=== PATIENT | male | born 1945 | race Caucasian/White ===

== ENCOUNTER 2020-05-30 06:14 | Emergency (ER) | payer MEDICARE ==
[~2020-05-30 06:14] MED LIST: ASPIRIN CHEWABL81 MG PO; COUMADIN3 MG PO; COUMADIN5 MG PO; COZAAR100 MG PO; DULERA 200 MCG8.8 GM INH; FLUOXETINE HCL20 M1 PO; FUROSEMIDE20 MG PO; GLUCOTROL10 MG PO; HCTZ25 MG PO; JANTOVEN3 MG PO; JARDIANCE10 MG PO; METFORMIN HCL500 MG PO; MICON-GUARD 2% TOP; MUCINEX 600MG600 MG PO; NORVASC5 MG PO; NOVOLOG MI100 UNIT/3 SC; PROVENTIL HFA6.7 GM INH; SPIRIVA 185 PUFFS/IN INH; TAMSULOSIN HCL0.4 MG PO; VOLTAREN **OUT50 MG PO; ZITHROMAX500 MG PO; ZOCOR20 MG PO
[2020-05-30 07:00] LABS: BASOPHIL 0.5 % (0-2); EOSINOPHIL 2.8 % (0-7); HGB 13.1 g/dl (13.2-18.0); LYMPHOCYTE 12.3 % (15-48); MCH 29.8 pg (25.0-31.0); MCV 93.4 fL (78.0-100.0); MONOCYTE 7.5 % (0-12); MPV 10.4 fL (6.0-9.5); NEUTROPHIL 76.4 % (41-80); NRBC 0; PLT 204 K/uL (150-400); RBC 4.39 M/uL (4.70-6.00); RDW 13.1 % (11.5-14.0); WBC 6.5 K/uL (4.0-10.5)
[2020-05-30 07:13] LABS: PROTHROMBIN TIME 12.5 SECONDS (11.4-13.6)
[2020-05-30 07:23] LABS: ALBUMIN 3.5 g/dL (3.4-5.0); BILIRUBIN - TOTAL 0.5 mg/dL (0.2-1.0); BUN/CREAT RATIO (CALC) 17.9 RATIO; CREATININE 1.51 mg/dL (0.67-1.17); GLOBULIN (CALCULATION) 3.7 g/dL; POTASSIUM 4.1 mmol/L (3.5-5.1); TOTAL PROTEIN 7.2 g/dL (6.4-8.2)
[2020-05-30 07:31] LABS: PRO-BNP 987 pg/mL (<125)
[2020-05-30 10:05] LABS: BILIRUBIN NEGATIVE (NEGATIVE); BLOOD NEGATIVE Ery/uL (NEGATIVE); CLARITY CLEAR (CLEAR); COLOR YELLOW (YELLOW); GLUCOSE (U) NORMAL (NORMAL); LEUKOCYTES NEGATIVE Leu/uL (NEGATIVE); NITRITE NEGATIVE (NEGATIVE); PROTEIN NEGATIVE (NEGATIVE); SPECIFIC GRAVITY 1.015 (1.001-1.030); UROBILINOGEN 0.2 mg/dL (0.2-1.0)
== END 2020-05-30 11:48 | disposition home or self-care (01) ==
LOC: FER 06:14
PROVIDERS: Emergency Medicine
DX: S09.90XA Unspecified injury of head, initial encounter (principal); E11.9 Type 2 diabetes mellitus without complications; I48.91 Unspecified atrial fibrillation; I11.0 Hypertensive heart disease with heart failure; I50.9 Heart failure, unspecified; J44.9 Chronic obstructive pulmonary disease, unspecified; F03.90 Unspecified dementia, unspecified severity, without behavioral disturbance, psychotic disturbance, mood disturbance, and anxiety; Z87.39 Personal history of other diseases of the musculoskeletal system and connective tissue; Z85.46 Personal history of malignant neoplasm of prostate; Z87.891 Personal history of nicotine dependence; Z88.5 Allergy status to narcotic agent; Z86.73 Personal history of transient ischemic attack (TIA), and cerebral infarction without residual deficits; W19.XXXA Unspecified fall, initial encounter; Y92.009 Unspecified place in unspecified non-institutional (private) residence as the place of occurrence of the external cause
CPT/HCPCS: 36415; 70450; 71045; 80053; 81003; 83880; 84484; 85025; 85610; 93005; J7030

== ENCOUNTER 2020-07-21 09:50 | Emergency (ER) | payer MEDICARE ==
[2020-07-21 10:13] LABS: BASOPHIL 0.5 % (0-2); EOSINOPHIL 2.9 % (0-7); HCT 39.2 % (42.0-52.0); HGB 12.8 g/dl (13.2-18.0); LYMPHOCYTE 16.9 % (15-48); MCH 30.5 pg (25.0-31.0); MCHC 32.7 g/dL (32.0-36.0); MCV 93.3 fL (78.0-100.0); MONOCYTE 7.3 % (0-12); MPV 10.3 fL (6.0-9.5); NEUTROPHIL 71.9 % (41-80); NRBC 0; PLT 187 K/uL (150-400); RDW 13.4 % (11.5-14.0); WBC 6.2 K/uL (4.0-10.5)
[2020-07-21 10:38] LABS: ALBUMIN 3.3 g/dL (3.4-5.0); BILIRUBIN - TOTAL 0.5 mg/dL (0.2-1.0); BUN/CREAT RATIO (CALC) 14.9 RATIO; CREATININE 1.48 mg/dL (0.67-1.17); GLOBULIN (CALCULATION) 3.3 g/dL; POTASSIUM 4.1 mmol/L (3.5-5.1); TOTAL PROTEIN 6.6 g/dL (6.4-8.2)
[2020-07-21 12:06] LABS: LACTIC ACID 2.1 mmol/L (0.4-1.9)
[2020-07-21 14:01] LABS: BILIRUBIN NEGATIVE (NEGATIVE); BLOOD NEGATIVE Ery/uL (NEGATIVE); CLARITY CLEAR (CLEAR); COLOR YELLOW (YELLOW); GLUCOSE (U) NORMAL (NORMAL); LEUKOCYTES NEGATIVE Leu/uL (NEGATIVE); NITRITE NEGATIVE (NEGATIVE); PROTEIN TRACE (LOW) mg/dL (NEGATIVE); UROBILINOGEN 0.2 mg/dL (0.2-1.0)
[2020-07-21 14:23] LABS: BACTERIA TRACE; URINARY RBC RARE; URINARY WBC RARE
== END 2020-07-21 14:40 | disposition home or self-care (01) ==
LOC: FER 09:50
PROVIDERS: Emergency Medicine
DX: S30.0XXA Contusion of lower back and pelvis, initial encounter (principal); I95.1 Orthostatic hypotension; M25.551 Pain in right hip; I10 Essential (primary) hypertension; J45.909 Unspecified asthma, uncomplicated; E11.9 Type 2 diabetes mellitus without complications; E66.9 Obesity, unspecified; Z86.73 Personal history of transient ischemic attack (TIA), and cerebral infarction without residual deficits; W19.XXXA Unspecified fall, initial encounter; Y92.009 Unspecified place in unspecified non-institutional (private) residence as the place of occurrence of the external cause
CPT/HCPCS: 36415; 70450; 72131; 73502; 80053; 81001; 83605; 84484; 85025; 93005

== ENCOUNTER 2020-09-26 05:36 | Day surgery (SDCO) | payer MEDICARE ==
[~2020-09-26] VITALS: Ht 167.6 cm; Wt 124.8 kg
[2020-09-26 05:58] LABS: BASOPHIL 0.5 % (0-2); EOSINOPHIL 2.3 % (0-7); HCT 35.2 % (42.0-52.0); HGB 11.4 g/dl (13.2-18.0); LYMPHOCYTE 16.2 % (15-48); MCH 30.4 pg (25.0-31.0); MCHC 32.4 g/dL (32.0-36.0); MCV 93.9 fL (78.0-100.0); MONOCYTE 8.8 % (0-12); MPV 9.9 fL (6.0-9.5); NEUTROPHIL 71.6 % (41-80); NRBC 0; PLT 176 K/uL (150-400); RBC 3.75 M/uL (4.70-6.00); RDW 13.4 % (11.5-14.0); WBC 6.6 K/uL (4.0-10.5)
[2020-09-26 06:12] LABS: INR 1.09 (0.9-1.2); PROTHROMBIN TIME 13.4 SECONDS (11.4-13.6); PTT 25.4 SECONDS (22.2-34.7)
[2020-09-26 06:20] LABS: BILIRUBIN - TOTAL 0.2 mg/dL (0.2-1.0); BUN/CREAT RATIO (CALC) 17.4 RATIO; CREATININE 1.49 mg/dL (0.67-1.17); GLOBULIN (CALCULATION) 3.6 g/dL; POTASSIUM 4.8 mmol/L (3.5-5.1); TOTAL PROTEIN 6.6 g/dL (6.4-8.2)
[2020-09-26] MEDS ORDERED: ASPIRIN81 MG PO (08:46)
[2020-09-26] MEDS ORDERED: PLAVIX75 MG PO (08:47)
[2020-09-26] MEDS ORDERED: PROZAC20 MG PO (08:48)
[2020-09-26] MEDS ORDERED: LASIX40 MG PO (08:49)
[2020-09-26] MEDS ORDERED: GLUCOTROL10 MG PO (08:53)
[2020-09-26] MEDS ORDERED: LOSARTAN-HCTZ1 EAC1 PO (08:55)
[2020-09-26] MEDS ORDERED: METFORMIN HCL500 MG PO (08:56)
[2020-09-26] MEDS ORDERED: PRAVASTATIN SOD10 MG PO (08:59)
[2020-09-26] MEDS ORDERED: FLOMAX 0.4 MG0.4 MG PO (09:00)
[2020-09-26] MEDS ORDERED: VITAMIN D350 MC3 PO (09:07)
[2020-09-26] MEDS ORDERED: LEVEMIR FL100 UNIT/1 SC (09:14)
[2020-09-26] MEDS ORDERED: COZAAR 100MG T100 MG PO (09:15)
[2020-09-27 05:53] LABS: BASOPHIL 0.2 % (0-2); EOSINOPHIL 3.5 % (0-7); HCT 33.5 % (42.0-52.0); HGB 10.6 g/dl (13.2-18.0); MCH 30.3 pg (25.0-31.0); MCHC 31.6 g/dL (32.0-36.0); MCV 95.7 fL (78.0-100.0); MONOCYTE 7.9 % (0-12); MPV 10.4 fL (6.0-9.5); NEUTROPHIL 72.9 % (41-80); NRBC 0; PLT 148 K/uL (150-400); RDW 13.3 % (11.5-14.0); WBC 6.6 K/uL (4.0-10.5)
[2020-09-27 06:07] LABS: BUN/CREAT RATIO (CALC) 18.5 RATIO; CREATININE 1.35 mg/dL (0.67-1.17); POTASSIUM 4.7 mmol/L (3.5-5.1)
[2020-09-27] MEDS ORDERED: ELIQUIS5 MG PO (12:23)
== END 2020-09-27 13:50 | disposition home or self-care (01) ==
LOC: FER 05:36 → FTCU 07:18
PROVIDERS: Emergency Medicine Emergency Medical Services; ADMIT Internal Medicine
DX: I48.20 Chronic atrial fibrillation, unspecified (principal); I12.9 Hypertensive chronic kidney disease with stage 1 through stage 4 chronic kidney disease, or unspecified chronic kidney disease; I25.10 Atherosclerotic heart disease of native coronary artery without angina pectoris; E11.22 Type 2 diabetes mellitus with diabetic chronic kidney disease; N18.30 Chronic kidney disease, stage 3 unspecified; K21.9 Gastro-esophageal reflux disease without esophagitis; E78.5 Hyperlipidemia, unspecified; G47.33 Obstructive sleep apnea (adult) (pediatric); Z20.822 Contact with and (suspected) exposure to COVID-19; Z86.73 Personal history of transient ischemic attack (TIA), and cerebral infarction without residual deficits; Z98.890 Other specified postprocedural states; Z87.891 Personal history of nicotine dependence; Z88.5 Allergy status to narcotic agent; Z79.84 Long term (current) use of oral hypoglycemic drugs; Z79.899 Other long term (current) drug therapy
CPT/HCPCS: 36415; 71045; 80048; 80053; 82962; 83690; 83880; 84484; 85025; 85610; 85730; 93005; G0378; U0002

== ENCOUNTER 2020-12-21 07:19 | Inpatient (IN) | payer MEDICARE ==
[~2020-12-21] VITALS: Ht 172.7 cm; Wt 151.8 kg
[~2020-12-21 07:19] MED LIST changes: +ASPIRIN81 MG PO; +COZAAR 100MG T100 MG PO; +ELIQUIS5 MG PO; +FLOMAX 0.4 MG0.4 MG PO; +LASIX40 MG PO; +LEVEMIR FL100 UNIT/1 SC; +LOSARTAN-HCTZ1 EAC1 PO; +PLAVIX75 MG PO; +PRAVASTATIN SOD10 MG PO; +PROZAC20 MG PO; +VITAMIN D350 MC3 PO
[2020-12-21 09:01] LABS: BASOPHIL 0.3 % (0-2); LYMPHOCYTE 16.5 % (15-48); MCH 29.7 pg (25.0-31.0); MCHC 32.4 g/dL (32.0-36.0); MCV 91.6 fL (78.0-100.0); MPV 10.1 fL (6.0-9.5); NEUTROPHIL 70.6 % (41-80); NRBC 0; PLT 165 K/uL (150-400); RBC 4.04 M/uL (4.70-6.00); RDW 13.3 % (11.5-14.0)
[2020-12-21 09:12] LABS: INR 1.03 (0.9-1.2); PROTHROMBIN TIME 12.9 SECONDS (11.8-13.4)
[2020-12-21 09:13] LABS: PTT 23.8 SECONDS (24.4-34.7)
[2020-12-21 09:14] LABS: D-DIMER 0.5 ug/mLFEU (0.00-0.41)
[2020-12-21 09:20] LABS: BILIRUBIN - TOTAL 0.6 mg/dL (0.2-1.0); BUN/CREAT RATIO (CALC) 16.8 RATIO; CREATININE 1.37 mg/dL (0.67-1.17); GLOBULIN (CALCULATION) 4.1 g/dL; POTASSIUM 4.3 mmol/L (3.5-5.1); TOTAL PROTEIN 7.1 g/dL (6.4-8.2)
[2020-12-21 09:32] LABS: LACTIC ACID 1.6 mmol/L (0.4-1.9)
[2020-12-21 09:33] LABS: PRO-BNP 2090 pg/mL (<450)
[2020-12-21 09:47] LABS: CORONAVIRUS 2019 SARS-COV-2 NEGATIVE (NEGATIVE); INFLUENZA A NAA NEGATIVE (NEGATIVE)
[2020-12-21] MEDS ORDERED: FLOMAX0.4 MG PO (13:37)
[2020-12-21] MEDS ORDERED: ASPIRIN EC81 MG PO (13:38)
[2020-12-21] MEDS ORDERED: VITAMIN D250 MC1 PO (13:38)
[2020-12-21] MEDS ORDERED: PRAVASTATIN SOD10 M1 PO (13:39)
[2020-12-21] MEDS ORDERED: METFORMIN HCL500 MG PO (13:39)
[2020-12-21] MEDS ORDERED: COZAAR 100MG T100 MG PO (13:40)
[2020-12-21] MEDS ORDERED: PROZAC20 MG PO (13:40)
[2020-12-21] MEDS ORDERED: PLAVIX75 M1 PO (13:40)
[2020-12-21] MEDS ORDERED: GLUCOTROL10 MG PO (13:40)
[2020-12-21] MEDS ORDERED: LASIX20 MG PO (13:41)
[2020-12-22 06:21] LABS: BASOPHIL 0.5 % (0-2); EOSINOPHIL 4.6 % (0-7); HCT 38.3 % (42.0-52.0); HGB 12.2 g/dl (13.2-18.0); LYMPHOCYTE 17.2 % (15-48); MCH 29.3 pg (25.0-31.0); MCHC 31.9 g/dL (32.0-36.0); MCV 92.1 fL (78.0-100.0); MONOCYTE 11.4 % (0-12); MPV 10.5 fL (6.0-9.5); NEUTROPHIL 65.8 % (41-80); NRBC 0; PLT 181 K/uL (150-400); RBC 4.16 M/uL (4.70-6.00); RDW 13.4 % (11.5-14.0); WBC 6.3 K/uL (4.0-10.5)
[2020-12-22 06:37] LABS: BUN/CREAT RATIO (CALC) 15.7 RATIO; CREATININE 1.91 mg/dL (0.67-1.17); POTASSIUM 4.5 mmol/L (3.5-5.1)
[2020-12-23 06:10] LABS: BASOPHIL 0.3 % (0-2); EOSINOPHIL 4.7 % (0-7); HCT 35.1 % (42.0-52.0); HGB 11.4 g/dl (13.2-18.0); LYMPHOCYTE 14.6 % (15-48); MCH 29.6 pg (25.0-31.0); MCHC 32.5 g/dL (32.0-36.0); MCV 91.2 fL (78.0-100.0); MPV 10.1 fL (6.0-9.5); NEUTROPHIL 69.8 % (41-80); NRBC 0; PLT 179 K/uL (150-400); RBC 3.85 M/uL (4.70-6.00); RDW 13.6 % (11.5-14.0); WBC 7.1 K/uL (4.0-10.5)
[2020-12-23 06:24] LABS: BUN/CREAT RATIO (CALC) 22.6 RATIO; CREATININE 1.9 mg/dL (0.67-1.17); POTASSIUM 4.2 mmol/L (3.5-5.1)
[2020-12-23 06:30] LABS: PRO-BNP 850 pg/mL (<450)
[2020-12-24 04:21] LABS: BASOPHIL 0.4 % (0-2); EOSINOPHIL 5.2 % (0-7); HCT 37.3 % (42.0-52.0); LYMPHOCYTE 16.1 % (15-48); MCH 29.6 pg (25.0-31.0); MCHC 32.2 g/dL (32.0-36.0); MCV 92.1 fL (78.0-100.0); MONOCYTE 10.3 % (0-12); MPV 10.3 fL (6.0-9.5); NEUTROPHIL 67.3 % (41-80); NRBC 0; PLT 200 K/uL (150-400); RBC 4.05 M/uL (4.70-6.00); RDW 13.4 % (11.5-14.0); WBC 7.4 K/uL (4.0-10.5)
[2020-12-24 04:36] LABS: BUN/CREAT RATIO (CALC) 26.1 RATIO; CREATININE 1.88 mg/dL (0.67-1.17)
[2020-12-24] MEDS ORDERED: BUMETANIDE1 MG PO (10:39)
== END 2020-12-26 10:40 | disposition home health service (06) | DRG 291 ==
LOC: FER 07:19 → FTCU 11:35 → FMS 12-25 19:47
PROVIDERS: Emergency Medicine; Internal Medicine Cardiovascular Disease; ADMIT Internal Medicine
DX: I13.0 Hypertensive heart and chronic kidney disease with heart failure and stage 1 through stage 4 chronic kidney disease, or unspecified chronic kidney disease (principal); I50.33 Acute on chronic diastolic (congestive) heart failure; I48.20 Chronic atrial fibrillation, unspecified; N17.9 Acute kidney failure, unspecified; Z68.43 Body mass index [BMI] 50.0-59.9, adult; F03.90 Unspecified dementia, unspecified severity, without behavioral disturbance, psychotic disturbance, mood disturbance, and anxiety; K21.9 Gastro-esophageal reflux disease without esophagitis; Z20.822 Contact with and (suspected) exposure to COVID-19; J44.9 Chronic obstructive pulmonary disease, unspecified; E78.5 Hyperlipidemia, unspecified; I25.10 Atherosclerotic heart disease of native coronary artery without angina pectoris; N18.9 Chronic kidney disease, unspecified; E11.22 Type 2 diabetes mellitus with diabetic chronic kidney disease; G47.33 Obstructive sleep apnea (adult) (pediatric); E66.9 Obesity, unspecified; Z86.73 Personal history of transient ischemic attack (TIA), and cerebral infarction without residual deficits; Z90.89 Acquired absence of other organs; Z98.890 Other specified postprocedural states; Z79.82 Long term (current) use of aspirin; Z79.02 Long term (current) use of antithrombotics/antiplatelets; Z79.84 Long term (current) use of oral hypoglycemic drugs; Z79.899 Other long term (current) drug therapy; Z88.5 Allergy status to narcotic agent; Z87.891 Personal history of nicotine dependence
CPT/HCPCS: 36415; 36600; 71045; 71046; 71250; 80048; 80053; 82803; 82962; 83605; 83880; 84484; 85025; 85379; 85610; 85730; 93005; 94640; 94664; 94760; 94762; 97161; 97166; 97530; 97535; J1940; J2405; U0002

== ENCOUNTER 2021-07-19 18:51 | Inpatient (IN) | payer MEDICARE ==
[~2021-07-19] VITALS: Ht 167.6 cm; Wt 113.4 kg
[~2021-07-19 18:51] MED LIST changes: +ASPIRIN EC81 MG PO; +BUMETANIDE1 MG PO; +FLOMAX0.4 MG PO; +LASIX20 MG PO; +PLAVIX75 M1 PO; +PRAVASTATIN SOD10 M1 PO; +VITAMIN D250 MC1 PO
[2021-07-19 20:27] LABS: BASOPHIL 0 % (0-2); EOSINOPHIL 0.3 % (0-7); HCT 36.5 % (42.0-52.0); HGB 12.4 g/dl (13.2-18.0); LYMPHOCYTE 19.2 % (15-48); MCH 30.6 pg (25.0-31.0); MCV 90.1 fL (78.0-100.0); MONOCYTE 12.1 % (0-12); MPV 10.7 fL (6.0-9.5); NEUTROPHIL 67.6 % (41-80); NRBC 0; PLT 154 K/uL (150-400); RBC 4.05 M/uL (4.70-6.00); RDW 13.2 % (11.5-14.0); WBC 3.6 K/uL (4.0-10.5)
[2021-07-19 20:31] LABS: INR 1.08 (0.9-1.2); PROTHROMBIN TIME 13.4 SECONDS (11.8-13.4); PTT 26.6 SECONDS (24.4-34.7)
[2021-07-19 20:58] LABS: BUN 34 mg/dL (7-18); CHLORIDE 98 mmol/L (98-107); CO2 (BICARBONATE) 22 mmol/L (21-32); CREATININE 1.81 mg/dL (0.67-1.17); GLUCOSE 98 mg/dL (74-106); POTASSIUM 3.9 mmol/L (3.5-5.1); TOTAL PROTEIN 6.4 g/dL (6.4-8.2)
[2021-07-19 20:59] LABS: ALBUMIN 2.9 g/dL (3.4-5.0); ALKALINE PHOSHATASE 93 U/L (46-116); ALT 40 U/L (16-63); AST 46 U/L (15-37); BILIRUBIN - TOTAL 0.7 mg/dL (0.2-1.0); GLOBULIN (CALCULATION) 3.5 g/dL; LDH 314 U/L (85-227); MAGNESIUM 1.5 mg/dL (1.8-2.4)
[2021-07-19 21:00] LABS: FT4 (FREE T4) 1.25 ng/dL (0.76-1.46)
[2021-07-19 21:14] LABS: LACTIC ACID 1.3 mmol/L (0.4-1.9)
[2021-07-19 21:24] LABS: BILIRUBIN NEGATIVE (NEGATIVE); BLOOD NEGATIVE Ery/uL (NEGATIVE); CLARITY CLEAR (CLEAR); COLOR YELLOW (YELLOW); GLUCOSE (U) NORMAL (NORMAL); LEUKOCYTES NEGATIVE Leu/uL (NEGATIVE); NITRITE NEGATIVE (NEGATIVE); PROTEIN TRACE (LOW) mg/dL (NEGATIVE); SPECIFIC GRAVITY 1.025 (1.001-1.030); UROBILINOGEN 0.2 mg/dL (0.2-1.0)
[2021-07-19 21:25] LABS: AMPHETAMINES NEGATIVE (NEGATIVE); BARBITURATES NEGATIVE (NEGATIVE); ECSTASY (MDMA) NEGATIVE (NEGATIVE); MARIJUANA (THC) NEGATIVE (NEGATIVE); METHADONE NEGATIVE (NEGATIVE); OPIATES NEGATIVE (NEGATIVE); OXYCODONE NEGATIVE (NEGATIVE)
[2021-07-19 21:39] LABS: INFLUENZA A NAA NEGATIVE (NEGATIVE)
[2021-07-19 21:42] LABS: CORONAVIRUS 2019 SARS-COV-2 POSITIVE (NEGATIVE)
[2021-07-20 06:48] LABS: BASOPHIL 0 % (0-2); EOSINOPHIL 0.7 % (0-7); HCT 33.8 % (42.0-52.0); HGB 11.3 g/dl (13.2-18.0); LYMPHOCYTE 19.2 % (15-48); MCH 30.3 pg (25.0-31.0); MCHC 33.4 g/dL (32.0-36.0); MCV 90.6 fL (78.0-100.0); MONOCYTE 9.6 % (0-12); MPV 9.9 fL (6.0-9.5); NEUTROPHIL 69.5 % (41-80); NRBC 0; PLT 127 K/uL (150-400); RBC 3.73 M/uL (4.70-6.00); RDW 13.2 % (11.5-14.0); WBC 2.9 K/uL (4.0-10.5)
[2021-07-20 08:00] LABS: BUN/CREAT RATIO (CALC) 20.3 RATIO; C-REACTIVE PROTEIN 3.5 mg/dL (<=0.90); CREATININE 1.77 mg/dL (0.67-1.17); MAGNESIUM 1.4 mg/dL (1.8-2.4); POTASSIUM 3.2 mmol/L (3.5-5.1)
--- NOTE | 2021-07-20 16:45 | NUR ---
07/20 An assessment by unsuccessfully attempted with Mr. Ybarra via telephone. He was unable to comprehend the conversation. - Per telephone conversation with Zack Ybarra, son, . Mr. Ybarra lives in a subsided rent apartment with his dog, Melodie. He has 02 at 2 - 3 L, C-PAP, rw, 3in1, and s. chair. The son and [id number]-s-luu assist as time permits. Zack Ybarra reports: his father's cognition to be declining and he stays in bed a great deal of the time. Zack Ybarra wants NH placement. He prefers placement in [place]. The placement barriers due to + COVID were discussed.
[2021-07-21 03:10] LABS: ALBUMIN 2.4 g/dL (3.4-5.0); BILIRUBIN - TOTAL 0.3 mg/dL (0.2-1.0); BUN/CREAT RATIO (CALC) 22.5 RATIO; CREATININE 1.69 mg/dL (0.67-1.17); GLOBULIN (CALCULATION) 3.8 g/dL; TOTAL PROTEIN 6.2 g/dL (6.4-8.2)
[2021-07-21 03:17] LABS: BASOPHIL 0.3 % (0-2); EOSINOPHIL 0 % (0-7); HCT 33.2 % (42.0-52.0); HGB 11.3 g/dl (13.2-18.0); LYMPHOCYTE 16.5 % (15-48); MONOCYTE 10.4 % (0-12); MPV 10.4 fL (6.0-9.5); NEUTROPHIL 71.5 % (41-80); NRBC 0; PLT 133 K/uL (150-400); RBC 3.65 M/uL (4.70-6.00); RDW 13.1 % (11.5-14.0)
[2021-07-23 06:56] LABS: BASOPHIL 0.2 % (0-2); EOSINOPHIL 0 % (0-7); HCT 32.1 % (42.0-52.0); LYMPHOCYTE 11.6 % (15-48); MCHC 34.3 g/dL (32.0-36.0); MCV 90.4 fL (78.0-100.0); MONOCYTE 5.5 % (0-12); MPV 9.8 fL (6.0-9.5); NEUTROPHIL 78.1 % (41-80); NRBC 0; PLT 150 K/uL (150-400); RBC 3.55 M/uL (4.70-6.00); RDW 13.2 % (11.5-14.0); WBC 5.6 K/uL (4.0-10.5)
[2021-07-23 07:28] LABS: BUN/CREAT RATIO (CALC) 21.2 RATIO; CREATININE 1.51 mg/dL (0.67-1.17); POTASSIUM 3.9 mmol/L (3.5-5.1)
--- NOTE | 2021-07-23 10:33 | NUR ---
07/23/21 Mr. Ybarra was informed of his son's request for SNF placement. He was in agreement, although not pleased. [facility] to [facility], [facility], and [facility]. [facility] is not in network, [facility] is searching for a facilty accepting pts with COVID dx, [facility] is reviewing and the other facilities are not accepting COVID.
--- NOTE | 2021-07-24 10:29 | NUR ---
07/24/21 [facility] denied because they are not in network with insurance. [facility] also denied. Referrals have been made to 13 facilities plus all of the [facility]. Will continue search. 07/28 is day 10 from initial positive test of 07/19/21.
--- NOTE | 2021-07-25 10:23 | NUR ---
07/25/21 Therapy reports patient to be CG with transfers and to amb 10 feet. Zack Ybarra is willing for patient to return home with HH since he has learned his father will not be eligible for Medicaid due to assets from selling his home. Zack Ybarra chose [facility] or [facility] . - A HHR was made to [facility].
[2021-07-25] MEDS ORDERED: NORVASC5 MG PO (14:51)
== END 2021-07-25 16:50 | disposition home health service (06) | DRG 177 ==
LOC: FER 18:51 → FMS 07-20 01:37 → FER 07-20 01:37 → FMS 07-20 01:37 → FER 07-20 02:10 → FMS 07-20 02:42
PROVIDERS: Emergency Medicine; Internal Medicine; Nurse Practitioner; ADMIT Internal Medicine
PROC: XW033E5 Introduction of Remdesivir Anti-infective into Peripheral Vein, Percutaneous Approach, New Technology Group 5 (ICD-10-PCS; principal; 2021-07-20)
PROC: 3E0333Z Introduction of Anti-inflammatory into Peripheral Vein, Percutaneous Approach (ICD-10-PCS; 2021-07-20)
PROC: 8E0ZXY6 Isolation (ICD-10-PCS; 2021-07-20)
PROC: 3E03329 Introduction of Other Anti-infective into Peripheral Vein, Percutaneous Approach (ICD-10-PCS; 2021-07-21)
DX: U07.1 COVID-19 (principal); J12.82 Pneumonia due to coronavirus disease 2019; G93.41 Metabolic encephalopathy; N17.9 Acute kidney failure, unspecified; I48.20 Chronic atrial fibrillation, unspecified; I13.0 Hypertensive heart and chronic kidney disease with heart failure and stage 1 through stage 4 chronic kidney disease, or unspecified chronic kidney disease; J44.1 Chronic obstructive pulmonary disease with (acute) exacerbation; J44.0 Chronic obstructive pulmonary disease with (acute) lower respiratory infection; Z68.41 Body mass index [BMI] 40.0-44.9, adult; I69.351 Hemiplegia and hemiparesis following cerebral infarction affecting right dominant side; E11.22 Type 2 diabetes mellitus with diabetic chronic kidney disease; N18.30 Chronic kidney disease, stage 3 unspecified; I50.9 Heart failure, unspecified; M54.50 Low back pain, unspecified; F03.90 Unspecified dementia, unspecified severity, without behavioral disturbance, psychotic disturbance, mood disturbance, and anxiety; K21.9 Gastro-esophageal reflux disease without esophagitis; E66.9 Obesity, unspecified; E78.5 Hyperlipidemia, unspecified; I25.10 Atherosclerotic heart disease of native coronary artery without angina pectoris; G47.33 Obstructive sleep apnea (adult) (pediatric); Z79.82 Long term (current) use of aspirin; Z79.02 Long term (current) use of antithrombotics/antiplatelets; Z79.84 Long term (current) use of oral hypoglycemic drugs; Z79.899 Other long term (current) drug therapy; Z90.49 Acquired absence of other specified parts of digestive tract; Z98.890 Other specified postprocedural states; Z87.891 Personal history of nicotine dependence; Z88.5 Allergy status to narcotic agent; Z85.46 Personal history of malignant neoplasm of prostate
CPT/HCPCS: 36415; 36600; 70450; 71045; 71250; 72131; 80048; 80053; 80305; 81003; 82140; 82550; 82728; 82803; 82962; 83605; 83615; 83735; 84100; 84145; 84439; 84443; 84484; 85025; 85610; 85730; 86140; 87040; 87186; 93005; 94010; 94640; 94760; 94762; 97110; 97162; 97166; 97530-GP; 97535; C9399; G0378; G0480; J0360; J1100; J1650; J3370; J3475; J7030; J7040; J7050; U0002